=== PATIENT | female | born 1960 | race Asian ===

== ENCOUNTER 2017-08-19 09:15 | Emergency (ER) | payer MEDICARE, MEDICAID ==
[~2017-08-19] VITALS: Ht 152.4 cm; Wt 50.0 kg
[2017-08-19] MEDS ORDERED: SODIUM CHLORIDE 0.9% 1,000 ML IV ONE (09:39)
[2017-08-19] MEDS ORDERED: ONDANSETRON HCL 4MG/2ML VIAL IV ONE (09:45)
[2017-08-19] MEDS ORDERED: KETOROLAC 15MG/ML VIAL IV ONE (09:45)
[2017-08-19 10:00] LABS: BASOPHILS % 0.4 % (0.0-2.0); EOSINOPHILS % 0.1 % (0.0-5.0); HEMATOCRIT. 41.8 % (36.0-48.0); HEMOGLOBIN. 14.7 g/dL (12.0-16.0); LYMPHOCYTES % 14.1 % (20.0-50.0); MEAN CORPUSCULAR HEMOGLOBIN 29.8 pg (28.0-32.0); MEAN PLATELET VOLUME 8.8 fl (7.4-10.4); MONOCYTES % 4.8 % (2.0-8.0); NEUTROPHILS % 80.6 % (40.0-76.0); PLATELET 317 x1000/uL (130-400); RED BLOOD CELL COUNT 4.92 mill/uL (4.2-5.4)
[2017-08-19 10:08] LABS: PROTHROMBIN TIME 10.4 sec (9.4-11.6)
[2017-08-19 10:18] LABS: CARBON DIOXIDE 28 mEq/L (21-32); CHLORIDE 98 mEq/L (98-107); TROPONIN I < 0.02 ng/mL (0.00-0.04)
[2017-08-19 13:28] VITALS: BP 159/88
== END 2017-08-19 13:54 | disposition home or self-care (01) ==
LOC: ER 10:12
DX: J18.9 Pneumonia, unspecified organism (principal); R51 Headache; H53.8 Other visual disturbances; R53.1 Weakness; I10 Essential (primary) hypertension; E11.9 Type 2 diabetes mellitus without complications
CPT/HCPCS: 36415; 70450; 71010; 80053; 82962; 83605; 83690; 83880; 84484; 85025; 85610; 87040; 93005; 96361; 96374; 96375; 99285; J1885; J2405; J7030